=== PATIENT | female | born 1940 | race Caucasian/White ===

== ENCOUNTER → 2022-01-09 | Outpatient (CLI) | payer MEDICARE, OTHER | LOC: US 13:20 → MRI 15:00 | DX: M54.9 Dorsalgia, unspecified (principal); G89.29 Other chronic pain; R42 Dizziness and giddiness; M15.9 Polyosteoarthritis, unspecified; H90.5 Unspecified sensorineural hearing loss; R55 Syncope and collapse; R94.39 Abnormal result of other cardiovascular function study; I65.23 Occlusion and stenosis of bilateral carotid arteries | CPT/HCPCS: 70551; 93880 ==